=== PATIENT | male | born 1995 | race Caucasian/White ===

== ENCOUNTER 2017-03-01 19:26 | Emergency (ER) | payer SELFPAY ==
[2017-03-01 19:37] VITALS: RESP 16
--- NOTE | 2017-03-01 19:50 | UCPHY ---
H & P Patient Type: New Chief Complaint Nursing Narrative: pt running, tripped over dog and fell on outstretched hand. pain and deformity to l elbow, l hand dusky but has cap refill <[address] Zamora notified of pt's condition HPI/ROS: Chief Complaint: Left elbow pain HPI: 22-year-old male fell on stub outstretched arm while running, sustaining an injury deformity to his left elbow. He denies his head. No loss of consciousness. Denies any other injuries. Is complaining of pain only in his elbow with inability to move it. Last meal was lunch time. Did drink some tea about an hour and half prior to arrival. ROS: 10 point Review of Systems is negative except as noted in the HPI. PMH: None medications: None Allergies: No known drug allergies Social History: No smoking, occasional alcohol, no recreational drug use Family History: non-contributory Physical Exam: Gen: Awake, Alert, No Distress HEENT: Nose: no rhinorrhea Eyes: PERRLA, EOMI Mouth: Moist mucosa Neck: Supple, no JVD Chest: nontender, lungs clear to auscultation Heart: S1, S2 normal, no murmur Abd: Soft, non-tender, no guarding Back: no CVA tenderness, no midline tenderness Ext: no edema, left elbow deformity with posterior displacement of the olecranon , held flexion with decreased range of motion secondary to pain. 2+ radial ulnar pulses, cap refills less than 2 seconds. Sensations intact in the radial , median, and ulnar nerve distribution. Skin: no rash Neuro: CN II-XII intact, Sensation grossly intact, Strength 5/5 in bilateral upper and lower extremities - Medical/Surgical History Other PMH: denies - Family History Significant Family History: No pertinent family hx - Social History Smoking Status: Never smoked Constitutional: Initial Vital Signs Temperature (C) 36.9 C 03/01/17 19:35 Heart Rate 83 03/01/17 19:35 Respiratory Rate 16 03/01/17 19:35 Blood Pressure 161/85 H 03/01/17 19:35 O2 Sat (%) 96 03/01/17 19:35 O2 Delivery Mode [Procedural Non-Rebreather Mask 3rd] O2 Delivery Mode [Procedural Non-Rebreather Mask 2nd] O2 Delivery Mode [Procedural Non-Rebreather Mask 1st] O2 Delivery Mode [.Immediate Room Air Pre-Procedure] O2 Delivery Mode Room Air O2 (L/minute) [Procedural 3rd] 15 O2 (L/minute) [Procedural 2nd] 15 O2 (L/minute) [Procedural 1st] 15 Allergies/Adverse Reactions: No Known Allergies Allergy (Unverified 03/01/17 19:34) Home Medications: Medication Instructions Recorded NK [No Known Home Meds] 03/01/17 Medical Decision Making - Diagnostics Imaging Results: Imaging Impressions Elbow X-Ray 03/01/17 19:32 Impression: Complete anterior dislocation of the distal humerus with respect to the olecranon fossa. Elbow X-Ray 03/01/17 20:51 Impression: 1. Bony fragment just anterior to the radial head on the lateral view. This most likely comes from the radial head rather than the olecranon. 2. Possible query nondisplaced intraarticular fracture at the posterior surface of the radial head, as well. 3. Now normally aligned distal humerus with respect to the olecranon fossa. E:GERARDO/octavio Initial left elbow x-ray shows left elbow dislocation. This is interpreted by me independently. Repeat x-ray shows good alignment anatomically. There is an avulsion likely from the proximal ulna. Per my interpretation Imaging: I viewed and interpreted images myself Procedures: Procedure: Procedural sedation. A pre-sedation evaluation was completed on the patient at 20:15. Patient is an appropriate candidate for procedural sedation. The risks of the sedation were discussed with the patient. A time out was completed. The patient was sedated with fentanyl, 50 mcg and propofol, a total of 160 mg. The patient was monitored with continuous pulse oximetry and clerical assistant. There were no complications and no significant hypoxemia. I remained at the bedside for the sedation. The total time I spent in the procedural sedation was 20 minutes. Procedure: Dislocation reduction. The dislocation of the left elbow was reduced using counter traction and distal displacement technique without complications. Post reduction the patient's neurovascular exam is normal. Post reduction x-ray demonstrates reduction of the joint to the anatomic position. The procedure was performed by myself. - Data Points Medications Given: Discontinued Medications Fentanyl (Sublimaze) 100 mcg IVP EDNOW ONE Stop: 03/01/17 19:54 Last Admin: 03/01/17 20:10 Dose: 100 mcg Sodium Chloride (Ns) 1,000 mls @ 0 mls/hr IV ONCE ONE PRN Reason: Wide Open Stop: 03/01/17 21:55 Last Admin: 03/01/17 20:25 Dose: 1,000 mls Propofol (Diprivan) 200 mg IVP EDNOW ONE Stop: 03/01/17 20:20 Last Admin: 03/01/17 20:29 Dose: 130 mg Departure - Departure Disposition: Home, Routine, Self-Care Clinical Impression: Elbow dislocation Condition: Good Instructions: Elbow Dislocation (ED), Procedural Sedation (ED) Additional Instructions: Follow up with Orthopedics in the next 1-2 days. Keep your elbow in the splint and sling until your seen by Orthopedics. He may take ibuprofen and acetaminophen as needed for pain. Apply ice for 15 minutes for every hour while awake. Referrals: Kolton Rodriguez MD [Medical Doctor] - As per Instructions - PQRS PQRS Measurement: NA
[2017-03-01] MEDS ORDERED: fentaNYL 100 MCG/2 ML INJ IVP ONE (19:53)
[2017-03-01] MEDS ORDERED: ONDANSETRON 4 MG/2 ML VIAL ONE (20:00)
[2017-03-01] MEDS ORDERED: PROPOFOL 200 MG/20 ML VIAL IVP ONE (20:19)
[2017-03-01] MEDS: NS 1,000 ML IV ONE (20:25)
[2017-03-01 21:36] VITALS: TEMP 98.1
[2017-03-01 21:53] VITALS: BP 141/91; PULSE 62; O2SAT 96
== END 2017-03-01 21:45 | disposition home or self-care (01) ==
LOC: CED 19:26
PROC: 0RSMXZZ Reposition Left Elbow Joint, External Approach (ICD-10-PCS; principal; 2017-03-01)
DX: S53.11 Anterior subluxation and dislocation of ulnohumeral joint (principal); W01.0XXA Fall on same level from slipping, tripping and stumbling without subsequent striking against object, initial encounter; Y92.019 Unspecified place in single-family (private) house as the place of occurrence of the external cause
CPT/HCPCS: 24605-PO; 73070-PO; 96360-PO; 96361-PO; 96374-PO; 96375-PO; 99204-PO; G0463-PO; J2405; J2704; J3010